=== PATIENT | male | born 1935 | race Caucasian/White ===

== ENCOUNTER 2016-03-03 16:12 | Inpatient (IN) | payer OTHER, MEDICARE ==
[~2016-03-03] VITALS: Ht 167.6 cm; Wt 66.2 kg
[2016-03-24] MEDS ORDERED: SERT-129 PO (10:07)
[2016-03-24] MEDS ORDERED: HYDR-3516 PO (10:07)
[2016-03-24] MEDS ORDERED: HYDR12.57 PO (10:07)
[2016-03-24] MEDS ORDERED: METO50TA11 PO (10:07)
[2016-03-24] MEDS ORDERED: ATOR20TA15 PO (10:07)
[2016-03-24] MEDS ORDERED: AMLO5TAB2 PO ×2 (10:07)
[2016-03-24] MEDS ORDERED: RANI300C PO (10:07)
[2016-03-24] MEDS ORDERED: LEVO-168 PO (10:07)
[2016-03-24] MEDS ORDERED: ASPI1TAB69 PO (10:07)
[2016-03-24] MEDS ORDERED: CALC1TAB12 PO (10:07)
[2016-03-25] MEDS ORDERED: GENTAMICIN SULFATE 80 MG/2 ML VIAL ONE (05:59)
[2016-03-25] MEDS ORDERED: DEXAMETHASONE SOD PHOS 20 MG/5 ML VIAL IV PRN (06:00)
[2016-03-25] MEDS ORDERED: DEXAMETHASONE SOD PHOS 20 MG/5 ML VIAL ONE (06:04)
[2016-03-25] MEDS ORDERED: ceFAZolin 2 GM PREMIX 50 ML ONE (06:04)
[2016-03-25] MEDS ORDERED: VANCOMYCIN HCL 1000 MG VIAL ONE (06:04)
[2016-03-25] MEDS ORDERED: SODIUM CHLOR 0.9% 250 ML INJ 250 ML ONE (06:04)
[2016-03-25 06:10] VITALS: BP 123/76; PULSE 68; RESP 18; TEMP 98.3; O2SAT 97
[2016-03-25] MEDS: POVIDONE IODINE 7.5% SCRUB 118 ML BOTTLE TOP SCH (06:15)
[2016-03-25] MEDS ORDERED: VANCOMYCIN 1000 MG/NS 250 ML (for <70 kg) IV SCH ×2 (06:15)
[2016-03-25] MEDS ORDERED: ceFAZolin 2 GM PREMIX 50 ML IV SCH (06:15)
[2016-03-25] MEDS ORDERED: METOPROLOL TARTRATE 25 MG TAB PO PRN (06:15)
[2016-03-25] MEDS ORDERED: TRANEXAMIC ACID IV SCH ×2 (06:15→11:00)
[2016-03-25] MEDS ORDERED: SODIUM CHLORID 0.9% 500 ML IV SCH (06:15)
[2016-03-25] MEDS: LACTATED RINGER'S 1000 ML IV SCH (06:15)
[2016-03-25] MEDS ORDERED: SODIUM CHLORIDE 0.9% IV SCH ×2 (06:15→11:00)
[2016-03-25] MEDS ORDERED: EXPAREL PERI-ARTICULAR INJECTION (TOTAL VOL. 60 ML) P-ARTICULR SCH ×2 (06:15)
[2016-03-25] MEDS ORDERED: INSULIN HUMAN REGULAR 1,000 UNITS/10 ML VIAL SQ PRN (06:15)
[2016-03-25] MEDS ORDERED: FAMOTIDINE 20 MG/2 ML VIAL ONE (06:47)
--- NOTE | 2016-03-25 06:53 | HHI.FF ---
Face to Face Verification Diagnosis: (1) Status post total hip replacement, right (2) Osteoarthritis of right hip Physical Therapy Gait training, Transfer training, bed to chair Hip: Total hip Right LE Weight Bearing: WB as tolerated Right LE Range of Motion: Active ROM Nursing Nursing: [place] teaching, Dressing changes Dressing Changes: Daily dressing change I have seen patient Joseph Smith on 03/25/16. My clinical findings support the need for the requested home health care services because: Limited ability to care for self High risk of falls I certify that my clinical findings support that this patient is homebound because: Post-op weakness Unsteady gait/balance Efrain Hawkins Mar 25, 2016 06:53
--- NOTE | 2016-03-25 06:53 | HHI.DCPOC ---
Discharge Care Plan Diagnosis: (1) Status post total hip replacement, right (2) Osteoarthritis of right hip Your Health Problems Are: Difficulty with ADL Goals to Promote Your Health * To prevent worsening of your condition and complications * To maintain your health at the optimal level Directions to Meet Your Goals Take your medications as prescribed Follow your dietary instruction Follow activity as directed Keep your appointments as scheduled Take your immunizations and boosters as scheduled If your symptoms worsen call your PCP, if no PCP go to Urgent Care Center or Emergency Room Smoking is Dangerous to Your Health. Avoid second hand smoke Call the 24-hour hour crisis hotline for domestic abuse at Efrain Hawkins Mar 25, 2016 06:52
[2016-03-25] MEDS ORDERED: COMMODE 3-IN-11 MIS (06:55)
[2016-03-25] MEDS ORDERED: WALKER WHEELS/F1 MIS (06:55)
[2016-03-25] MEDS ORDERED: ACETAMINOPHEN/HYDROcodone 325 MG/5 MG TAB PO PRN (08:45)
[2016-03-25] MEDS ORDERED: MORPHINE SULFATE 4 MG/ML INJ IV PUSH PRN (08:45)
[2016-03-25] MEDS ORDERED: diphenhydrAMINE HCL 50 MG/ML VIAL IV PRN (08:45)
[2016-03-25] MEDS ORDERED: BISACODYL 10 MG SUPP PR PRN (08:45)
[2016-03-25] MEDS ORDERED: NALOXONE HCL 0.4 MG/ML AMP IV PRN (08:45)
[2016-03-25] MEDS ORDERED: ONDANSETRON HCL 4 MG/2 ML VIAL IVP PRN (08:45)
[2016-03-25] MEDS ORDERED: MAGNESIUM HYDROXIDE SUSP 30 ML CUP PO PRN (08:45)
[2016-03-25] MEDS ORDERED: ALUMINUM/MAGNESIUM/SIMETH 30 ML CUP PO PRN (08:45)
[2016-03-25] MEDS ORDERED: SODIUM CHLORIDE 0.9% FLUSH 5 ML FLUSH IVF PRN (08:45)
[2016-03-25] MEDS ORDERED: Post-op Orders (for Pharmacy) MISC XX ONE (08:45)
--- NOTE | 2016-03-25 08:46 | PD.OP ---
cc: Douglas Tavera MD Operative Report Date of Surgery: Mar 25, 2016 Preoperative Diagnosis: Right hip severe osteoarthritis Postoperative Diagnosis: Same Procedure: Right total hip arthroplasty Anesthesia: Gen. Surgeon: Douglas Tavera Bakery Supervisor(s): ERASMO Dong The surgical procedure was assisted by my Advanced Registered Nurse Practitioner. My TIN CUTTER presence was necessary throughout this case for the manipulation and positioning of the surgical extremity. My TIN CUTTER was assisting me throughout the duration of this procedure. The skill set of an Advance Registered Nurse Practitioner was medically necessary to complete this procedure. During the surgical case, the surgical instrument repair specialist was working at the back table and the Advance Registered Nurse Practitioner was directly assisting me. Operation and Findings: IMPLANT DESCRIPTION: 1. Isom Gription Cup, acetabular size 56. 2. Isom AltrX polyethylene, +4, 10 degree lip, placed posterior superior. 4. Corail femoral stem size 12, no collar, high offset. 5. Femoral head/neck adult, 36, +5. ESTIMATED BLOOD LOSS: 150 cc. JUSTIFICATION FOR PROCEDURE: The patient has end-stage osteoarthritis to the hip. There is an attached conservative measures pathway form in the chart that describes the nonoperative measures that were undertaken prior to consideration of surgical management. The patient understood the risks and benefits of surgical management. See my office notes for further details. PROCEDURE: The patient was brought back to the operative theatre. Adequate anesthesia was obtained. The patient received intravenous vancomycin and Ancef. The patient was carefully placed on the operative table. The lower extremity was prepped and draped in the usual sterile fashion. Fluoroscopic images were obtained. We made a standard anterior incision over the hip. We dissected through the TFL fascia, exposing the anterior capsule. Arthrotomy was performed in a T-shaped fashion. The inferior capsule was tagged with a #2 FiberWire. The superior capsule needed to be excised because there was massive heterotopic ossification buried within it. Once we excised the superior capsule we used a rongeur to remove quite a bit of heterotopic ossification. End-stage arthritis was identified. Osteotomy was performed through the femoral neck exposing the acetabulum. Remnants of the labrum were resected and osteophytes were removed. We sequentially reamed the acetabulum. We trialed the hip and placed the final cup into position. This was done under fluoroscopic guidance to obtain the appropriate inclination and anteversion. A manhole cover was placed into the acetabular component. We then placed the final polyethylene into position and confirmed that it was well seated. Capsular attachments on the calcar and the inner aspect of the greater trochanter were resected. On the proximal aspect of the femur we used a rongeur , box osteotome, canal finder, sequential broaches and lateralizing rasp. We calcar planed the proximal femur. Then thoroughly irrigated the wound. We trialed the hip with the appropriate size stem. We placed the final stem in to position and trialed again. The hip was stable while it was externally rotated 70 degrees when the leg was lowered to the floor. The final head was applied, and final fluoroscopic images were obtained. The wound was thoroughly irrigated again. Interarticular injection of liposomal bupivacaine was given. The capsule could not be closed. We left the inferior leaf in position. The deep fascia was closed with a #2 Stratafix, followed by 2- 0 Vicryl in the skin and lizette. Postop plan is to weight-bear as tolerated. DVT prophylaxis will be performed with SCDs, CARMEN dominguez, early mobilization, and Lovenox followed by aspirin. Douglas Tavera MD Mar 25, 2016 08:46
[2016-03-25] MEDS ORDERED: NORC5TAB PO (08:48)
[2016-03-25] MEDS ORDERED: ASPI325T PO (08:48)
[2016-03-25] MEDS ORDERED: ENOX40P SQ (08:48)
[2016-03-25] MEDS ORDERED: fentaNYL CITRATE 250 MCG/5 ML AMP ONE (09:13)
[2016-03-25] MEDS ORDERED: MIDAZOLAM HCL 2 MG/2 ML VIAL ONE (09:14)
[2016-03-25] MEDS ORDERED: PILL SPLITTER OTHER PRN (09:15)
[2016-03-25] MEDS ORDERED: *ONDANSETRON 4 MG VIAL PERIprocedural Use ONLY ONE (09:26)
--- NOTE | 2016-03-25 09:29 | RADRPT ---
EXAM DATE/TIME: 03/25/2016 07:21 [facility] COMPARISON: No previous studies available for comparison. INDICATIONS : Post-op total right hip arthroplasty. MEDICAL HISTORY : None. SURGICAL HISTORY : Left total hip arthroplasty. ENCOUNTER: Initial ACUITY: 1 day PAIN SCORE: Non-responsive. LOCATION: Right hip. FINDINGS: The patient is status post a total hip arthroplasty with a bipolar prosthesis. Prosthesis is well-sea meghan. Alignment is anatomic. A fracture is not appreciated. CONCLUSION: Anatomic alignment in the AP projection. Jarrett Madden MD FACR Board Certified Radiologist. This report was verified electronically.
[2016-03-25] MEDS: SODIUM CHLOR 0.9% 1000 ML INJ 1,000 ML IV SCH ×2 (09:30→18:41)
[2016-03-25] MEDS ORDERED: DO NOT ADM ANY ANTICOAGULANT DRUGS XX PRN (09:30)
[2016-03-25] MEDS: CALCIUM/VITAMIN D 250 MG/125 U TAB PO SCH ×2 (10:00→11:09)
[2016-03-25] MEDS: SODIUM CHLORIDE 0.9% FLUSH 5 ML FLUSH IVF SCH ×2 (10:31→20:55)
--- NOTE | 2016-03-25 11:07 | RADRPT ---
EXAM DATE/TIME: 03/25/2016 09:14 [facility] COMPARISON: No previous studies available for comparison. INDICATIONS : Post op right hip surgery. MEDICAL HISTORY : None. SURGICAL HISTORY : None. ENCOUNTER: Initial ACUITY: 1 day PAIN SCORE: Non-responsive. LOCATION: Right hip and pelvis FINDINGS: The patient is status post a total hip arthroplasty with a bipolar prosthesis. Prosthesis is well-sea meghan. Alignment is anatomic. A fracture is not appreciated. Patient has an old prosthesis on the left . CONCLUSION: Anatomic alignment. Jarrett Madden MD FACR Board Certified Radiologist. This report was verified electronically.
[2016-03-25] MEDS: SERTRALINE HCL 100 MG TAB PO SCH (11:08)
[2016-03-25] MEDS ORDERED: LACTATED RINGER'S 1000 ML INJ 1,000 ML IV ONE (12:00)
[2016-03-25] MEDS ORDERED: NEOSTIGMINE 3 MG/3 ML SYR IV ONE (12:00)
[2016-03-25] MEDS ORDERED: PROPOFOL 200 MG/20 ML AMP IV ONE (12:00)
[2016-03-25] MEDS ORDERED: PHENYLEPH/NS 1000 MCG/10 ML SYR IV ONE (12:00)
[2016-03-25] MEDS ORDERED: ePHEDrine/NS 25 MG/5 ML SYR IV ONE (12:00)
[2016-03-25 14:30] VITALS: BP 114/59; PULSE 72; RESP 16; TEMP 97.8; O2SAT 98
[2016-03-25 16:30] VITALS: BP 129/64; PULSE 76; RESP 16; TEMP 97; O2SAT 98
--- NOTE | 2016-03-25 18:12 | PD.CONS ---
HPI Service [facility] Hospitalists Consult Requested By Orthopedic surgery Reason for Consult Medical management Primary Care Physician No Primary Care Physician Diagnoses: (1) Osteoarthritis of right hip (2) Hypertension (3) Hyperlipidemia (4) Hypothyroidism History of Present Illness Mr. Smith is a very pleasant 80-year-old [employer] who underwent right total hip arthroplasty on 03/25/2016. Patient has undergone conservative management for a long time before surgical management was considered. At the time of this interview patient denies any chest pain, shortness of breath, fever or chills. His pain is well controlled. Hospitalist service was consulted for medical management. She denies any changes in bowel or bladder habits. Review of Systems ROS Limitations: Other (negative except as noted in the history of present illness) Past Family Social History Allergies: Coded Allergies: No Known Allergies (Unverified , 03/24/16) Past Medical History Chronic kidney disease CAD status post stent placement Hypertension Hyperlipidemia Hypothyroidism Osteoarthritis Past Surgical History Prostate surgery due to prostate cancer Left hip replacement Bilateral cataract surgery Reported Medications Current Medications Medications (Trade) Dose Ordered Sig/Elsa Route Start Time Stop Time Status Last Admin Povidone Iodine 1 applic 1 applic ONCE TOP 03/25/16 06:15 03/28/16 06:14 03/25/16 06:15 (Lr 1000 ml Inj) 1,000 ml @ 30 mls/hr Q24H IV 03/25/16 06:15 03/25/16 06:15 (Norvasc) 5 mg DAILY PO 03/26/16 09:00 03/26/16 09:34 (Lipitor) 20 mg HS PO 03/25/16 21:00 03/25/16 20:54 (Microzide) 12.5 mg DAILY PO 03/26/16 09:00 03/26/16 09:34 (Synthroid) 112 mcg DAILY@06 PO 03/26/16 06:00 03/26/16 06:00 (Toprol Xl) 50 mg HS PO 03/25/16 21:00 03/25/16 20:54 (Zoloft) 150 mg DAILY PO 03/25/16 10:00 03/26/16 09:34 Calcium/Vitamin D 500 mg 500 mg DAILY PO 03/25/16 10:00 03/26/16 09:34 (NS 1000 ml Inj) 1,000 ml @ 100 mls/hr Q10H IV 03/25/16 08:41 03/25/16 09:30 (NS Flush) 2 ml UNSCH PRN IVF 03/25/16 08:45 (NS Flush) 2 ml BID IVF 03/25/16 09:00 03/26/16 09:35 (Lovenox Inj) 40 mg Q24H SQ 03/26/16 08:00 04/04/16 08:01 03/26/16 09:35 ([place] 5-325 Mg) 1 tab Q4H PRN PO 03/25/16 08:45 03/26/16 06:06 ([place] 5-325 Mg) 2 tab Q4H PRN PO 03/25/16 08:45 03/26/16 12:19 (Theragran M Tab) 1 tab BID PO 03/26/16 21:00 05/25/16 20:59 (Zofran Inj) 4 mg Q6H PRN IVP 03/25/16 08:45 (Colace) 100 mg BID PO 03/26/16 21:00 (Mag-Al Plus Susp Liq) 30 ml Q6H PRN PO 03/25/16 08:45 (Ambien) 5 mg HS PRN PO 03/25/16 21:00 (Dulcolax Supp) 10 mg DAILY PRN LA 03/25/16 08:45 (Milk Of Magnesia Liq) 30 ml DAILY PRN PO 03/25/16 08:45 (Narcan Inj) 0.4 mg UNSCH PRN IV 03/25/16 08:45 (Benadryl Inj) 25 mg Q6H PRN IV 03/25/16 08:45 (Morphine Inj) 2 mg Q3H PRN IV PUSH 03/25/16 08:45 (Pill Splitter) 1 ea UNSCH PRN OTHER 03/25/16 09:15 (Pepcid) 10 mg BID PO 03/26/16 21:00 Family History No family history of Alzheimer's or Parkinson's. Social History Patient denies using tobacco or alcoho. Denies using illicit drugs. Physical Exam Vital Signs Vital Signs Date Time Temp Pulse Resp B/P Pulse Ox O2 Delivery O2 Flow Rate FiO2 03/25/16 16:30 97.0 76 16 129/64 98 03/25/16 14:30 97.8 72 16 114/59 98 03/25/16 13:00 98.1 70 14 127/67 99 Nasal Cannula 2 03/25/16 12:30 68 12 121/68 97 Nasal Cannula 2 03/25/16 11:30 66 16 132/72 99 Nasal Cannula 2 03/25/16 10:14 97.5 71 15 130/72 94 Nasal Cannula 2 03/25/16 09:45 68 16 136/71 95 Nasal Cannula 2 03/25/16 09:30 75 16 144/75 95 Nasal Cannula 2 03/25/16 09:15 69 15 148/79 95 Nasal Cannula 3 03/25/16 09:02 97.8 77 15 140/83 95 Nasal Cannula 3 03/25/16 06:10 98.3 68 18 123/76 97 Physical Exam GENERAL: This is a well-nourished, well-developed patient, in no apparent distress. SKIN: No rashes, ecchymoses or lesions. Warm and dry. HEAD: Atraumatic. Normocephalic. No temporal or scalp tenderness. EYES: Pupils equal round and reactive. No injection or drainage. ENT: Nose without bleeding, purulent drainage or septal hematoma. Airway patent. NECK: Trachea midline. No lymphadenopathy. Supple, nontender, no meningeal signs. CARDIOVASCULAR: Regular rate and rhythm without murmurs, gallops, or rubs. No JVD. RESPIRATORY: Clear to auscultation. Breath sounds equal bilaterally. No wheezes , rales, or rhonchi. GASTROINTESTINAL: Abdomen soft, non-tender, nondistended. No guarding. MUSCULOSKELETAL: Extremities without clubbing, cyanosis, or edema. Status post right hip arthroplasty. Able to move all toes. NEUROLOGICAL: Awake and alert. Cranial nerves II through XII intact. No focal neurological deficits. Normal speech. Laboratory Laboratory Tests Test 03/25/16 06:00 Blood Type A POSITIVE Antibody Screen NEGATIVE Imaging Last Impressions Hip and Pelvis X-Ray 03/25/16 0841 Signed Impressions: Service Date/Time: Friday, March 25, 2016 09:14 - CONCLUSION: Anatomic alignment. Jarrett Madden MD Hip X-Ray 03/25/16 0000 Signed Impressions: Service Date/Time: Friday, March 25, 2016 07:21 - CONCLUSION: Anatomic alignment in the AP projection. Jarrett Madden MD Assessment and Plan Problem List: (1) Osteoarthritis of right hip ICD Code: M16.11 Status: Acute (2) CAD (coronary artery disease) ICD Code: I25.10 Status: Acute (3) Hypertension ICD Code: I10 Status: Chronic (4) Hyperlipidemia ICD Code: E78.5 Status: Chronic (5) Hypothyroidism ICD Code: E03.9 Status: Chronic Assessment and Plan Mr. Smith is a very pleasant 80 year old [employer] who underwent right total hip arthroplasty. - Osteoarthritis of the right hip - Continue Oscal-D. - [place], Morphine for pain. - Bowel regimen - Dulcolax supp, Milk of Mag. - Hypertension - Continue Amlodipine 5mg Qday, HCTZ 12.5mg Qday. - CAD s/p stent - placed about 10 years ago. - Hyperlipidemia - Continue Aspirin after Lovenox. - Metoprolol succ 50mg QHS, Lipitor 20mg QHS. - Hypothyroidism - Continue Levothyroxine. Full code. Lovenox 40mg Q24hrs starting 03/26/2016. Thank you for the consult. We'll continue to follow this patient with you. Kris Bunn DO Mar 25, 2016 6:12 pm
[2016-03-25 20:00] VITALS: BP 137/79; PULSE 75; RESP 16; TEMP 97.6; O2SAT 98
[2016-03-25 20:29] VITALS: PULSE 92
[2016-03-25] MEDS: ATORVASTATIN 20 MG TAB PO SCH (20:54)
[2016-03-25] MEDS: FAMOTIDINE 20 MG TAB PO SCH (20:54)
[2016-03-25] MEDS: METOPROLOL SUCCINATE 50 MG EXTENDED RELEASE TAB PO SCH (20:54)
[2016-03-25] MEDS ORDERED: ZOLPIDEM TARTRATE 5 MG TAB PO PRN (21:00)
[2016-03-26 00:50] VITALS: BP 115/59; PULSE 75; RESP 18; TEMP 96.7; O2SAT 95
[2016-03-26 03:30] VITALS: BP 121/59; PULSE 79; RESP 18; TEMP 100.3; O2SAT 93
[2016-03-26] MEDS: SODIUM CHLOR 0.9% 1000 ML INJ 1,000 ML IV SCH ×2 (04:41→14:41)
[2016-03-26] MEDS: LEVOTHYROXINE SODIUM 112 MCG TAB PO SCH (06:00)
[2016-03-26] MEDS: ACETAMINOPHEN/HYDROcodone 325 MG/5 MG TAB PO PRN (06:06)
[2016-03-26] MEDS: POVIDONE IODINE 7.5% SCRUB 118 ML BOTTLE TOP SCH (06:15)
[2016-03-26] MEDS: LACTATED RINGER'S 1000 ML IV SCH (06:15)
[2016-03-26 07:00] LABS: HEMATOCRIT 27.3 % (39.0-51.0); MEAN CELL VOLUME 88.2 FL (80.0-100.0); MEAN CORPUSCULAR HEMOGLOBIN 30.1 PG (27.0-34.0); MEAN CORPUSCULAR HGB CONC 34.1 % (32.0-36.0); PLATELET COUNT 153 TH/MM3 (150-450); RED BLOOD COUNT 3.09 MIL/MM3 (4.50-5.90); REVIEW FLAG FINAL; WHITE BLOOD COUNT 10.1 TH/MM3 (4.0-11.0)
[2016-03-26 07:40] LABS: BICARBONATE 25.8 MEQ/L (21.0-32.0); POTASSIUM 4.4 MEQ/L (3.5-5.1)
[2016-03-26] MEDS ORDERED: DEXAMETHASONE SOD PHOS 20 MG/5 ML VIAL IV ONE (07:45)
[2016-03-26 08:00] VITALS: BP 115/64; PULSE 87; RESP 19; TEMP 96.6; O2SAT 95
[2016-03-26] MEDS: HYDROCHLOROTHIAZIDE 12.5 MG CAP PO SCH (09:34)
[2016-03-26] MEDS: amLODIPine BESYLATE 5 MG TAB PO SCH (09:34)
[2016-03-26] MEDS: CALCIUM/VITAMIN D 250 MG/125 U TAB PO SCH (09:34)
[2016-03-26] MEDS: SERTRALINE HCL 100 MG TAB PO SCH (09:34)
[2016-03-26] MEDS: FAMOTIDINE 20 MG TAB PO SCH ×2 (09:34→20:52)
[2016-03-26] MEDS: SODIUM CHLORIDE 0.9% FLUSH 5 ML FLUSH IVF SCH ×2 (09:35→20:52)
[2016-03-26] MEDS: ENOXAPARIN SODIUM 40 MG/0.4 ML SYRINGE SQ SCH (09:35)
[2016-03-26 11:52] VITALS: BP 118/70; PULSE 87; RESP 18; TEMP 97.2; O2SAT 95
--- NOTE | 2016-03-26 12:31 | PD.ORT.PN ---
Subjective Post Op Day #: 1 Subjective Remarks Patient is OOB in chair with mild to moderate pain to the right hip. Patient is ambulatory and voiding. Objective Vitals Vital Signs Date Time Temp Pulse Resp B/P Pulse Ox O2 Delivery O2 Flow Rate FiO2 03/26/16 11:52 97.2 87 18 118/70 95 03/26/16 08:00 96.6 87 19 115/64 95 03/26/16 03:30 100.3 79 18 121/59 93 03/26/16 00:50 96.7 75 18 115/59 95 03/25/16 22:08 21 03/25/16 20:29 92 03/25/16 20:00 97.6 75 16 137/79 98 03/25/16 16:30 97.0 76 16 129/64 98 03/25/16 14:30 97.8 72 16 114/59 98 03/25/16 13:00 98.1 70 14 127/67 99 Nasal Cannula 2 03/25/16 12:30 68 12 121/68 97 Nasal Cannula 2 I/O 03/25/16 03/25/16 03/25/16 03/26/16 03/26/16 03/26/16 07:00 15:00 23:00 07:00 15:00 23:00 Intake Total 1500 ml 720 ml 660 ml Output Total 600 ml 750 ml 480 ml Balance 900 ml -30 ml 180 ml Intake Oral 100 ml 720 ml 480 ml IV Total 200 ml 180 ml Other 1200 ml Output Urine Total 350 ml 750 ml 480 ml Estimated Blood Loss 250 ml # Bowel Movements 0 Result Diagram: 03/26/16 0628 03/26/16 0628 Procedures Right ANNEMARIE Objective Remarks Patient's dressings are C/D/I. EHL/TA/G intact. 2+ pedal pulse. Calf is soft and nontender. Minimal swelling. + SILT. Assessment & Plan Ortho Post Op Day #: 1 Problem List: Assessment and Plan POD #1: Right ANNEMARIE 1. WBAT RLE 2. Lovenox for DVT prophylaxis 3. Ice to the right hip PRN 4. Anticipatory discharge home with home health on Wednesday. Efrain Hawkins Mar 26, 2016 12:31
--- NOTE | 2016-03-26 14:27 | HHI.PR ---
Subjective Remarks Follow-up for right hip arthroplasty. Patient is currently doing well. He had bowel movement yesterday and today. Denies any chest pain, shortness of breath , fever or chills. Pain is well controlled. Objective Vitals Vital Signs Date Time Temp Pulse Resp B/P Pulse Ox O2 Delivery O2 Flow Rate FiO2 03/26/16 11:52 97.2 87 18 118/70 95 03/26/16 08:00 96.6 87 19 115/64 95 03/26/16 03:30 100.3 79 18 121/59 93 03/26/16 00:50 96.7 75 18 115/59 95 03/25/16 22:08 21 03/25/16 20:29 92 03/25/16 20:00 97.6 75 16 137/79 98 03/25/16 16:30 97.0 76 16 129/64 98 03/25/16 14:30 97.8 72 16 114/59 98 I/O 03/25/16 03/25/16 03/25/16 03/26/16 03/26/16 03/26/16 07:00 15:00 23:00 07:00 15:00 23:00 Intake Total 1500 ml 720 ml 660 ml Output Total 600 ml 750 ml 480 ml Balance 900 ml -30 ml 180 ml Intake Oral 100 ml 720 ml 480 ml IV Total 200 ml 180 ml Other 1200 ml Output Urine Total 350 ml 750 ml 480 ml Estimated Blood Loss 250 ml # Bowel Movements 0 Result Diagram: 03/26/16 0628 03/26/16 0628 Imaging Last Impressions Hip and Pelvis X-Ray 03/25/16 0841 Signed Impressions: Service Date/Time: Friday, March 25, 2016 09:14 - CONCLUSION: Anatomic alignment. Jarrett Madden MD Hip X-Ray 03/25/16 0000 Signed Impressions: Service Date/Time: Friday, March 25, 2016 07:21 - CONCLUSION: Anatomic alignment in the AP projection. Jarrett Madden MD Objective Remarks GENERAL: Alert, oriented 3, NAD. SKIN: Warm and dry. HEAD: Normocephalic. EYES: No scleral icterus. No injection or drainage. NECK: Supple, trachea midline. No JVD or lymphadenopathy. CARDIOVASCULAR: Regular rate and rhythm without murmurs, gallops, or rubs. RESPIRATORY: Breath sounds equal bilaterally. No accessory muscle use. GASTROINTESTINAL: Abdomen soft, non-tender, nondistended. MUSCULOSKELETAL: No cyanosis, or edema. Status post right hip arthroplasty. Able to move all toes. BACK: Nontender without obvious deformity. No CVA tenderness. Procedures Right total hip arthroplasty 03/25/2016 A/P Problem List: (1) Osteoarthritis of right hip ICD Code: M16.11 Status: Acute (2) CAD (coronary artery disease) ICD Code: I25.10 Status: Acute (3) Hypertension ICD Code: I10 Status: Chronic (4) Hyperlipidemia ICD Code: E78.5 Status: Chronic (5) Hypothyroidism ICD Code: E03.9 Status: Chronic Assessment and Plan Mr. Smith is a very pleasant 80 year old [employer] who underwent right total hip arthroplasty. Hospitalist service was consulted for medical management. - Osteoarthritis of the right hip - Continue Oscal-D. - [place], Morphine for pain. - Bowel regimen - Dulcolax supp, Milk of Mag. Patient had BM yesterday and today. - Hypertension - Continue Amlodipine 5mg Qday, HCTZ 12.5mg Qday. - CAD s/p stent - placed about 10 years ago. - Hyperlipidemia - Continue Aspirin after Lovenox. - Metoprolol succ 50mg QHS, Lipitor 20mg QHS. - Hypothyroidism - Continue Levothyroxine 112 g daily. Full code. Lovenox 40mg Q24hrs. Kris Bunn DO Mar 26, 2016 2:27 pm
[2016-03-26 16:00] VITALS: BP 121/72; PULSE 80; RESP 19; TEMP 97.8; O2SAT 95
[2016-03-26 20:00] VITALS: BP 120/60; PULSE 76; RESP 18; TEMP 98.9; O2SAT 94
[2016-03-26] MEDS: DOCUSATE SODIUM 100 MG CAP PO SCH (20:51)
[2016-03-26] MEDS: MULTIVITAMINS/MINERALS THERAPEUTIC TAB PO SCH (20:51)
[2016-03-26] MEDS: ATORVASTATIN 20 MG TAB PO SCH (20:52)
[2016-03-26] MEDS: METOPROLOL SUCCINATE 50 MG EXTENDED RELEASE TAB PO SCH (20:52)
[2016-03-27] VITALS: BP 109/61; PULSE 73; RESP 18; TEMP 97.2; O2SAT 95
[2016-03-27] MEDS: SODIUM CHLOR 0.9% 1000 ML INJ 1,000 ML IV SCH ×2 (00:41→10:41)
[2016-03-27] MEDS: LEVOTHYROXINE SODIUM 112 MCG TAB PO SCH (05:57)
[2016-03-27] MEDS: POVIDONE IODINE 7.5% SCRUB 118 ML BOTTLE TOP SCH (06:15)
[2016-03-27] MEDS: LACTATED RINGER'S 1000 ML IV SCH (06:15)
[2016-03-27 06:41] LABS: HEMATOCRIT 26.4 % (39.0-51.0); MEAN CELL VOLUME 87.6 FL (80.0-100.0); MEAN CORPUSCULAR HEMOGLOBIN 29.9 PG (27.0-34.0); MEAN CORPUSCULAR HGB CONC 34.2 % (32.0-36.0); PLATELET COUNT 121 TH/MM3 (150-450); RED BLOOD COUNT 3.01 MIL/MM3 (4.50-5.90); RED CELL DISTRIBUTION WIDTH 15.1 % (11.6-17.2); REVIEW FLAG FINAL; WHITE BLOOD COUNT 8.2 TH/MM3 (4.0-11.0)
[2016-03-27 08:00] VITALS: BP 118/64; PULSE 71; RESP 16; TEMP 99; O2SAT 94
[2016-03-27] MEDS: HYDROCHLOROTHIAZIDE 12.5 MG CAP PO SCH (08:05)
[2016-03-27] MEDS: MULTIVITAMINS/MINERALS THERAPEUTIC TAB PO SCH (08:05)
[2016-03-27] MEDS: DOCUSATE SODIUM 100 MG CAP PO SCH (08:05)
[2016-03-27] MEDS: SODIUM CHLORIDE 0.9% FLUSH 5 ML FLUSH IVF SCH (08:05)
[2016-03-27] MEDS: ENOXAPARIN SODIUM 40 MG/0.4 ML SYRINGE SQ SCH (08:05)
[2016-03-27] MEDS: CALCIUM/VITAMIN D 250 MG/125 U TAB PO SCH (08:07)
[2016-03-27] MEDS: amLODIPine BESYLATE 5 MG TAB PO SCH (08:08)
[2016-03-27] MEDS: SERTRALINE HCL 100 MG TAB PO SCH (08:08)
[2016-03-27] MEDS: FAMOTIDINE 20 MG TAB PO SCH (08:08)
[2016-03-27 12:00] VITALS: BP 94/50; PULSE 73; RESP 16; TEMP 100; O2SAT 94
[2016-03-27] MEDS: ACETAMINOPHEN/HYDROcodone 325 MG/5 MG TAB PO PRN (14:34)
--- NOTE | 2016-03-28 23:16 | HHI.DS ---
Discharge Summary Admission Date Mar 25, 2016 at 05:34 Discharge Date: Mar 27, 2016 Admitting Diagnosis OA of the right hip Status post total hip arthroplasty, right Diagnosis: (1) Osteoarthritis of right hip Diagnosis: Principal (2) Status post total hip replacement, right Diagnosis: Principal Procedures Right ANNEMARIE Brief History This is a 80 year old male patient with severe OA of the right hip. CBC/BMP: 03/27/16 0510 03/26/16 0628 Significant Findings Laboratory Tests Test 03/26/16 03/27/16 06:28 05:10 Red Blood Count 3.09 MIL/MM3 3.01 MIL/MM3 (4.50-5.90) (4.50-5.90) Hemoglobin 9.3 GM/DL 9.0 GM/DL (13.0-17.0) (13.0-17.0) Hematocrit 27.3 % 26.4 % (39.0-51.0) (39.0-51.0) Blood Urea Nitrogen 33 MG/DL (7-18) Creatinine 1.71 MG/DL (0.60-1.30) Estimat Glomerular Filtration 39 ML/MIN (>89) Rate Random Glucose 132 MG/DL (74-106) Calcium Level 8.2 MG/DL (8.5-10.1) Platelet Count 121 TH/MM3 (150-450) PE at Discharge Patient's dressings are C/D/I. EHL/TA/G intact. 2+ pedal pulse. Calf is soft and nontender. Minimal swelling. + SILT. Hospital Course The patient was admitted to the hospital for severe OA of the right hip to have a right ANNEMARIE. The patient's surgery went well without complications. The patient had a normal hospital course. The patient is WBAT. The patient will be discharged home with home health and will f/u in the office in . Pt Condition on Discharge: Stable Discharge Disposition: Disch w/ Home Health Serv Discharge Instructions Diet Instructions: As Tolerated, No Restrictions Activities You Can Perform: Weight Bearing as Tonya Activities to Avoid: Strenuous Activity Follow up Referrals: Orthopedics with Douglas Tavera MD [facility]/ with [facility] [phone] New Medications: Aspirin (Aspirin) 325 Mg Tab 325 MG PO DAILY Start Aspirin after Lovenox is completed. Prevent Blood Clot # 30 Ref 0 TAB Commode 3-in-1 (Commode 3-in-1) 1 Mis Mis 1 EA .ROUTE DIRECTED #1 Ref 0 EA Enoxaparin Inj (Lovenox Inj) 40 Mg/0.4 Ml Syr 40 MG SQ DAILY Start Aspirin after Lovenox is completed. Blood Clot Prevention # 10 Ref 0 SYRINGE Hydrocodone-Acetaminophen ([place]) 5-325 mg Tab 1-2 TAB PO Q4H PRN PAIN #60 Ref 0 TAB Walker with Front Wheels (Walker with Front Wheels) 1 Mis Mis 1 EA .ROUTE DIRECTED #1 Ref 0 EA Continued Medications: Amlodipine (Amlodipine) 5 Mg Tab 5 MG PO DAILY Blood Pressure Management #30 Ref 0 TAB Atorvastatin (Atorvastatin) 20 Mg Tab 20 MG PO HS Cholesterol Management #30 Ref 0 TAB Calcium Carbonate-Cholecalciferol (Calcium 500 +D) 500-400 Mg-Unit Tab 1 TAB PO DAILY Calcium Supplement Ref 0 TAB Hydrochlorothiazide (Hydrochlorothiazide) 12.5 Mg Cap 12.5 MG PO DAILY #30 Ref 0 CAP Levothyroxine (Levothyroxine) 112 Mcg Tab 112 MCG PO DAILY #30 Ref 0 TAB Metoprolol Succinate ER 24 HR (Metoprolol Succinate ER 24 HR) 50 Mg Tab 50 MG PO HS #30 Ref 0 TAB Ranitidine (Ranitidine) 300 Mg Cap 300 MG PO BID Ref 0 CAP Sertraline (Sertraline) 100 Mg Tab 150 MG PO DAILY #30 Ref 0 TAB Discontinued Medications: Aspirin (Aspirin) 81 Mg Tabdr 81 MG PO DAILY TAB Hydrocodone-Acetaminophen (Hydrocodone-Acetaminophen) 5-325 mg Tab 1 TAB PO Q4H PRN PAIN Ref 0 TAB Efrain Hawkins Mar 28, 2016 23:16
== END 2016-03-27 14:48 | disposition home health service (06) | DRG 470 ==
LOC: HSDI 03-25 05:34 → N06B 03-25 13:52
PROVIDERS: ADMIT Orthopaedic Surgery; ATTEND Orthopaedic Surgery
PROC: 0SR902A Replacement of Right Hip Joint with Metal on Polyethylene Synthetic Substitute, Uncemented, Open Approach (ICD-10-PCS; principal; 2016-03-25 06:49)
DX: M16.11 Unilateral primary osteoarthritis, right hip (principal); Z96.642 Presence of left artificial hip joint; I12.9 Hypertensive chronic kidney disease with stage 1 through stage 4 chronic kidney disease, or unspecified chronic kidney disease; E03.9 Hypothyroidism, unspecified; I25.10 Atherosclerotic heart disease of native coronary artery without angina pectoris; E78.5 Hyperlipidemia, unspecified; N18.9 Chronic kidney disease, unspecified; Z85.46 Personal history of malignant neoplasm of prostate; Z95.5 Presence of coronary angioplasty implant and graft
CPT/HCPCS: 73502; 76000; 80048; 85027; 86850; 86900; 86901; 94150; C1776; C9290; J0690; J1100; J1580; J1650; J2250; J2370; J2405; J2710; J3010; J3370; J7030; J7050; J7120